=== PATIENT | female | born 1970 | race Caucasian/White ===

== ENCOUNTER → 2017-10-01 | Outpatient (CLI) | payer OTHER ==
[~2017-10-01] VITALS: Ht 160 cm; Wt 61.2 kg
[2017-10-01 12:58] VITALS: BP 130/60
[2017-10-01 14:03] LABS: HEMATOCRIT 36.2 % (37.0-47.0); MCH 28.9 pg (26.0-34.0); MCHC 33.3 g/dL (28.0-37.0); MCV 86.7 fL (80.0-100.0); MPV 8.3 fl. (7.2-11.1); RBC 4.17 mil/uL (4.20-5.00); RDW-CV 13.9 % (10.5-14.5); WBC 9.2 thou/uL (4.0-11.0)
[2017-10-01 14:11] LABS: CALCIUM 9.4 mg/dL (8.5-10.1); CREATININE 0.5 mg/dL (0.6-1.3); POTASSIUM 3.8 mmol/L (3.5-5.1)
[2017-10-01 14:23] LABS: APTT 29.1 Seconds (25.0-31.3); INR 1.1; PROTIME 10.6 Seconds (9.20-11.50)
[2017-10-01 16:27] VITALS: BP 115/52
[2017-10-01 16:42] VITALS: BP 116/65
--- NOTE | 2017-10-01 16:54 | EKG ---
[place] [address] ELECTROCARDIOGRAM REPORT Name: DEAN STACK Room: [facility]#: [id number] Admission: 10/01/17 Attend Phys: Panchito Kraft MD Discharge: Date of : 72 Report #: [id number] THIS REPORT FOR: //name// [facility] Test Date: 2017-10-01 Test Time: 14:04:16 Pat Name: DEANAlem STACK Department: Room: Gender: F Guest Services Agent: : 1970 Requested By: Panchito Kraft Order Number: [id number] Reading MD: Panchito Kraft Measurements Intervals [place] Rate: 98 P: 18 AR: 127 QRS: 43 QRSD: 75 T: 43 QT: 342 QTc: 437 Interpretive Statements Sinus rhythm No previous ECG available for comparison Electronically Signed On 10-01-2017 16:54:43 CDT by Panchito Kraft [email or web address] <ELECTRONICALLY SIGNED> By: Panchito Kraft MD, [facility] 10/01/17 1654 1404 1404 Panchito Kraft MD, FACC /EPI
[2017-10-01 17:20] VITALS: BP 110/62
--- NOTE | 2017-10-22 18:56 | CARD ---
[address] [address] CARDIAC CATH REPORT Name: WESTLEYJUANDEAN Room: [facility]#: [id number] Admission: 10/01/17 Attend Phys: Panchito Kraft MD Discharge: Date of : 72 Report #: [id number] THIS REPORT FOR: //name// APPROVED REPORT Study performed: 10/01/2017 14:42:31 Patient Status: Out-Patient Room #: Exam: Generator Change for a Dual Chamber Permanent Pacemaker Indications: Dual chamber pacemaker generator at elective replacement. The patient is a 46 year-old female with a history of cardioinhibitory syncope. Implanted Devices: [employer]otronik Etrinsa 8 DRT, model #3 12/10/90, serial #[id number] dual-chamber pacing generator Existing leads: Medtronic CapSure, model #5076, serial number [id number] atrial lead Medtronic CapSure, model #5076, serial number [id number] ventricular lead Explanted Devices: Medtronic Enpulse, model number E2DR01, serial #[id number] dual-chamber pulse generator Procedure The patient underwent informed consent. We discussed the details of the procedure including the risks, which include, but not limited to bleeding, infection, vascular damage, cardiac perforation, and pneumothorax. After informed consent was obtained the patient was brought to the cardiac catheterization lab. The area of the left chest was prepped and draped in sterile fashion. Local anesthesia was achieved with 1% lidocaine. Next after an initial incision was made over the dual-chamber pacing generator the generator was explanted using electrocautery and blunt dissection. The atrial and ventricular leads were detached from the existing generator. The device pocket and leads were flushed with antibiotic solution. Next a new dual-chamber pacing generator was attached to the atrial and ventricular leads. The generator and redundant leads were then placed within the device pocket. The deep tissues were closed with interrupted stitches of 2-0 Vicryl. The skin incision was then closed with [place] [address] CARDIAC CATH REPORT Name: DEAN STACK Room: [facility]#: [id number] Admission: 10/01/17 Attend Phys: Panchito Kraft MD Discharge: Date of : 72 Report #: [id number] stitch of 4-0 Vicryl. Several Steri-Strips were placed across the incision. A sterile Telfa dressing was then covered with a Tegaderm. The patient tolerated procedure well without complication. Electrode Parameters P Wave: 6.10 mV R Wave: 6.20 mV Atrial Threshold: 0.8 V at 0.40 ms Ventricular Threshold: 0.8 V at 0.40 ms Atrial Resistance: 490 ohms Ventricular Resistance: 312 ohms Pacing mode DDD/CLS. Lower rate 60 bpm. Upper tracking rate 130 bpm. Mode switch rate 160 bpm. AV delay 180 ms. Conclusion 1. Dual-chamber pacing generator at end of life. 2. Successful replacement of a dual-chamber pacing generator2. Successfull dual chamber pacing generator replacement. Recommendations 1.Follow up site check in one week. <ELECTRONICALLY SIGNED> By: Panchito Kraft MD, FACC 10/22/171854 54 54Michaesanjeev Kraft MD, FACC /INF
== END | disposition home or self-care (01) ==
LOC: M.CL 12:34
PROVIDERS: Internal Medicine Cardiovascular Disease
DX: Z45.2 Encounter for adjustment and management of vascular access device (principal); R00.0 Tachycardia, unspecified; I49.5 Sick sinus syndrome